=== PATIENT | female | born 1960 | race Caucasian/White ===

== ENCOUNTER 2024-08-03 10:33 | Observation (INO) ==
[~2024-08-03 10:33] MED LIST: KETAMINE HCL ONE; PRECEDEX INJ VIAL ONE; ULTANE GAS IN ONE
--- NOTE | 2024-08-03 10:51 | ED.ABDFE ---
HPI Time Seen Time Seen by Provider: 08/03/24 10:51 COVID-19 Coronavirus risk:travel/contact w/high risk person: Yes Has patient experienced Coronavirus symptoms: Yes Reviewed Nurses Notes Review: Yes Source History Provided: Patient Opioid Opioid Risk Tool Total: 0 Total Score Risk Category: Low Risk Copyright: [employer] VALDES predicting aberrant behaviors Discharge Plan Discharge Plan Patient Disposition: HOME, SELF-CARE Condition: Stable Prescriptions: No Action metoprolol succinate 50 mg tablet extended release 24 hr 50 mg PO BID pantoprazole 40 mg tablet,delayed release (DR/EC) 40 mg PO QDAY ondansetron 4 mg tablet,disintegrating 4 mg PO Q6HR PRN Gi Cocktail 15 ml PO TID PRN Health Concerns: Post Hospitalization: new medications and changes needed to prevent readmission or further decline. Pt educated and given instructions on all concerns. Plan of Treatment: Continue with present treatment and follow up plan. Pt is to keep follow up appointment as instructed and take medications as ordered. Instructions Stand Alone Forms: Find Help Web Site, Post Hospital Follow Up Care
[2024-08-03] MEDS: NS 1,000 ML IV 1,000 ML IV SCH (11:12)
[2024-08-03] MEDS: DEMEROL INJ IVP ONE (11:12)
[2024-08-03] MEDS: ZOFRAN INJ 4 MG VIAL IVP ONE (11:12)
[2024-08-03 11:22] LABS: BASOPHILS % (AUTO) 0.6 % (0.2-1.0); EOSINOPHILS % (AUTO) 0.5 % (0.9-2.9); HEMATOCRIT 48.7 % (36.0-47.0); HEMOGLOBIN 16.5 g/dL (12.0-16.0); LYMPHOCYTES # (AUTO) 1.4 X10^3/uL (1.3-2.9); LYMPHOCYTES % (AUTO) 22.8 % (21.0-51.0); MEAN CORPUSCULAR HEMOGLOBIN 33.2 pg (27.0-34.0); MEAN CORPUSCULAR VOLUME 97.7 fL (80.0-100.0); MONOCYTES # (AUTO) 0.4 x10^3/uL (0.3-0.8); MONOCYTES % (AUTO) 7.2 % (0.0-13.0); NEUTROPHILS # (AUTO) 4.2 x10^3/uL (2.2-4.8); NEUTROPHILS % (AUTO) 68.9 % (42.0-75.0); PLATELET COUNT 175 X10^3/uL (150.0-450.0); RED BLOOD COUNT 4.98 X10^6/uL (3.5-5.4); RED CELL DISTRIBUTION WIDTH 13.9 % (11.6-16.5)
[2024-08-03 11:34] LABS: ALANINE AMINOTRANSFERASE 19 Units/L (12-78); ALBUMIN 4.1 g/dL (3.4-5.0); ALKALINE PHOSPHATASE 76 Units/L (46-116); AMYLASE 28 Units/L (25-115); ASPARTATE AMINO TRANSFERASE 25 Units/L (15-37); BLOOD UREA NITROGEN 24 mg/dL (7-18); CALCIUM 9.8 mg/dL (8.5-10.1); CARBON DIOXIDE 29.1 mmol/L (21-32); CHLORIDE 102 mmol/L (98-107); CREATININE 1.08 mg/dL (0.55-1.02); GLUCOSE 87 mg/dL (65-99); LIPASE 14 Units/L (16-77); POTASSIUM 3.3 mmol/L (3.5-5.1); SODIUM 142 mmol/L (136-145); TOTAL PROTEIN 7.5 g/dL (6.4-8.2); eGFR NON BLACK RACES 55 (>60)
--- NOTE | 2024-08-03 12:27 | US ---
EXAM:Gallbladder sonogramHISTORY:Epigastric painTECHNIQUE:Multiple grayscale sonographic images were obtained.COMPARISON:NoneFINDINGS:Liver was normal in size and configuration and without cyst, mass, or biliary ductal dilatation. Cholelithiasis is present. Gallbladder wall is mildly thickened. No pericholecystic or intramural fluid identified. If cholecystitis is a clinical consideration nuclear medicine biliary scan may be of further diagnostic value in assessing cystic duct patency. Common duct measured 2.5 mm. Right kidney measured 10 cm in length. No solid masses, hydro nephrosis, or perinephric fluid collections are identified. There is a suggestion of a 4 mm lower pole calculus present. The head and body of the pancreas appeared normal. The tail is obscured by overlying bowel gas.IMPRESSION:Cholelithiasis. Mild gallbladder wall thickening is present but without evidence for pericholecystic fluid or intramural fluid. If cholecystitis is a strong clinical consideration nuclear medicine biliary scan may be of further diagnostic value in assessing cystic duct patency.Probable 4 mm nonobstructing left lower pole renal calculus.THIS IS AN ELECTRONICALLY VERIFIED FINAL REPORT08/03/2024 12:24 PM - Electronically signed by Jl Lugo MD
[2024-08-03 12:29] LABS: BILIRUBIN,URINE NEGATIVE (NEGATIVE); BLOOD/HEMOGLOBIN,URINE 4+ (NEGATIVE); GLUCOSE, URINE NEGATIVE (NEGATIVE); KETONES,URINE 4+ (NEGATIVE); LEUKOCYTE ESTERASE ,URINE 1+ (NEGATIVE); NITRITES,URINE POSITIVE (NEGATIVE); PROTEIN,URINE 2+ (NEGATIVE); UROBILINOGEN,URINE NORMAL (NORMAL)
[2024-08-03 12:30] LABS: APPEARANCE,URINE CLEAR (CLEAR); COLOR,URINE YELLOW (YELLOW)
[2024-08-03 13:04] LABS: SQUAMOUS EPITHELIAL CELL,UR FEW /HPF (NEGATIVE)
[2024-08-03 13:05] LABS: BACTERIA,URINE TRACE /HPF (NEGATIVE)
--- NOTE | 2024-08-03 13:16 | EKG ---
Test Reason : preop clearance Blood Pressure : */* mmHG Vent. Rate : 51 BPM Atrial Rate : 51 BPM P-R Int : 148 ms QRS Dur : 94 ms QT Int : 464 ms P-R-T Axes : 47 73 70 degrees QTc Int : 427 ms Sinus bradycardia Otherwise normal ECG No previous ECGs available Confirmed by Walter Silveira MD ([id number]) on 08/04/2024 5:49:57 AM Referred By: Confirmed By: Walter Silveira MD
[2024-08-03] MEDS: LR 1,000 ML IV 1,000 ML IV ONE (13:30)
[2024-08-03] MEDS: ANCEF VIAL 1 GRAM ONE (13:30)
[2024-08-03] MEDS: NS 100 ML IV 100 ML ONE (13:30)
[2024-08-03] MEDS: VERSED ONE (13:44)
[2024-08-03] MEDS: ANCEF VIAL 1 GRAM IV PRN (13:44)
[2024-08-03] MEDS: ZEMURON 100 MG VIAL ONE (13:44)
[2024-08-03] MEDS: LR 1,000 ML IV 0 ML IV PRN (13:44)
[2024-08-03] MEDS: PEPCID 20 MG VIAL ONE (13:44)
[2024-08-03] MEDS: DIPRIVAN VIAL 20 ML ONE (13:44)
[2024-08-03] MEDS: ZOFRAN INJ 4 MG VIAL ONE ×2 (13:44→16:15)
[2024-08-03] MEDS: FENTANYL VIAL INJ 100 mcg ONE (13:44)
[2024-08-03] MEDS: BRIDION ONE (13:44)
[2024-08-03] MEDS: VERSED IVP PRN (13:45)
[2024-08-03] MEDS: ZOFRAN INJ 4 MG VIAL IVP PRN ×2 (13:45→15:58)
[2024-08-03] MEDS: PEPCID 20 MG VIAL IVP PRN (13:45)
[2024-08-03] MEDS: DIPRIVAN VIAL 120 ML IVP PRN (13:51)
[2024-08-03] MEDS: ZEMURON 100 MG VIAL IVP PRN (13:51)
[2024-08-03] MEDS: FENTANYL VIAL INJ 100 mcg IVP PRN (13:51)
[2024-08-03] MEDS: XYLOCAINE 2 % (PLAIN) INJ PRN (13:51)
[2024-08-03] MEDS: KETAMINE HCL IV PRN ×2 (13:53→14:05)
[2024-08-03] MEDS: PRECEDEX INJ VIAL IVP PRN ×2 (13:55→14:20)
[2024-08-03] MEDS: TORADOL 30 MG VIAL ONE (14:14)
[2024-08-03] MEDS: TORADOL 30 MG VIAL IVP PRN (14:15)
[2024-08-03] MEDS ORDERED: REGLAN INJ 10 MG VIAL IVP PRN (14:16)
[2024-08-03] MEDS ORDERED: ZOFRAN INJ 4 MG VIAL IVP PRN (14:16)
[2024-08-03] MEDS ORDERED: BENADRYL INJ 50 MG VIAL IVP PRN (14:16)
[2024-08-03] MEDS ORDERED: DILAUDID INJ IVP PRN (14:16)
[2024-08-03] MEDS ORDERED: BARHEMSYS INJ IVP PRN (14:16)
[2024-08-03] MEDS: NORMODYNE INJ 20 MG VIAL ONE (14:18)
[2024-08-03] MEDS: NORMODYNE INJ 20 MG VIAL IVP PRN (14:19)
--- NOTE | 2024-08-03 14:42 | RAD ---
EXAM:Portable AP chestHISTORY:Preop clearanceCOMPARISON:NoneFINDINGS:Transve rse heart diameter and contour normal with clear lungs and pleural spaces.IMPRESSION:No acute or significant chest abnormality identified.THIS IS AN ELECTRONICALLY VERIFIED FINAL REPORT08/03/2024 2:39 PM - Electronically signed by Stas Lainez MD
[2024-08-03] MEDS: BRIDION IVP PRN (14:48)
[2024-08-03] MEDS: BACTROBAN TOPICAL OINT ONE (16:16)
[2024-08-03] MEDS: MORPHINE SULFATE INJ 2 MG INJ ONE (16:21)
[2024-08-03] MEDS: MORPHINE SULFATE INJ 2 MG INJ IVP PRN (16:23)
[2024-08-03] MEDS: NS 250 ML IV 25 ML IV PRN (17:27)
[2024-08-03] MEDS: D5 1/2 NS 1,000 ML 1,000 ML IV SCH (17:27)
[2024-08-03] MEDS: ZOSYN VIAL 3.375 GRAMS 3.375 G in NS 100 ML IV 100 ML IV SCH (17:28)
[2024-08-03] MEDS ORDERED: CONSULT PHARMACY - POTASSIUM & MAGNESIUM XX SCH (18:00)
[2024-08-03] MEDS ORDERED: NS + KCL 40 MEQ/L 1,000 ML IV SCH (19:00)
[2024-08-03] MEDS: KLOR-CON PO SCH (21:30)
[2024-08-03] MEDS ORDERED: RESTORIL CAP 15 MG PO PRN (21:32)
[2024-08-03 21:40] VITALS: RESP 18
[2024-08-04 06:19] LABS: BASOPHILS % (AUTO) 0.5 % (0.2-1.0); EOSINOPHILS # (AUTO) 0.2 x10^3/uL (0.0-0.2); EOSINOPHILS % (AUTO) 1.9 % (0.9-2.9); HEMATOCRIT 38.5 % (36.0-47.0); HEMOGLOBIN 13.2 g/dL (12.0-16.0); LYMPHOCYTES # (AUTO) 0.5 X10^3/uL (1.3-2.9); LYMPHOCYTES % (AUTO) 6.3 % (21.0-51.0); MEAN CORPUSCULAR HEMOGLOBIN 33.7 pg (27.0-34.0); MEAN CORPUSCULAR HGB CONC 34.4 g/dL (33.0-35.0); MEAN PLATELET VOLUME 9.1 fL (7.4-11.0); MONOCYTES # (AUTO) 0.6 x10^3/uL (0.3-0.8); MONOCYTES % (AUTO) 7.7 % (0.0-13.0); NEUTROPHILS # (AUTO) 6.7 x10^3/uL (2.2-4.8); NEUTROPHILS % (AUTO) 83.6 % (42.0-75.0); PLATELET COUNT 130 X10^3/uL (150.0-450.0); RED BLOOD COUNT 3.92 X10^6/uL (3.5-5.4); RED CELL DISTRIBUTION WIDTH 13.7 % (11.6-16.5)
[2024-08-04 06:25] LABS: ALANINE AMINOTRANSFERASE 23 Units/L (12-78); ALBUMIN 2.8 g/dL (3.4-5.0); ALKALINE PHOSPHATASE 59 Units/L (46-116); ASPARTATE AMINO TRANSFERASE 31 Units/L (15-37); BLOOD UREA NITROGEN 16 mg/dL (7-18); CALCIUM 8.6 mg/dL (8.5-10.1); CARBON DIOXIDE 29.4 mmol/L (21-32); CHLORIDE 105 mmol/L (98-107); COR CA(FOR HYPOALB) 9.6 mg/dL (8.5-10.1); COR NA(FOR HYPERGLY) 141 mmol/L (136-145); CREATININE 0.87 mg/dL (0.55-1.02); GLUCOSE 160 mg/dL (65-99); SODIUM 140 mmol/L (136-145); TOTAL PROTEIN 5.4 g/dL (6.4-8.2); eGFR NON BLACK RACES > 60 (>60)
[2024-08-04] MEDS ORDERED: CONSULT PHARMACY - POTASSIUM & MAGNESIUM XX SCH (07:00)
[2024-08-04] MEDS: K-DUR TAB 20 MEQ PO SCH (09:28)
[2024-08-04 09:37] VITALS: BP 135/62; PULSE 57; TEMP 97.7; O2SAT 99
== END 2024-08-04 09:55 | disposition home or self-care (01) ==
LOC: U 10:33 → ER 10:33 → U 13:24 → MED/SURG 16:07
PROVIDERS: ADMIT Surgery; ATTEND Surgery
DX: E87.6 Hypokalemia; Z01.810 Encounter for preprocedural cardiovascular examination; R10.13 Epigastric pain; K82.8 Other specified diseases of gallbladder; R00.1 Bradycardia, unspecified; E80.6 Other disorders of bilirubin metabolism; Z16.29 Resistance to other single specified antibiotic; B96.29 Other Escherichia coli [E. coli] as the cause of diseases classified elsewhere; K66.0 Peritoneal adhesions (postprocedural) (postinfection); R11.2 Nausea with vomiting, unspecified; Z16.11 Resistance to penicillins; Z98.84 Bariatric surgery status; K80.00 Calculus of gallbladder with acute cholecystitis without obstruction; E86.0 Dehydration